=== PATIENT | male | born 1970 | race African-American/Black ===

== ENCOUNTER 2022-01-19 23:01 | Emergency (ER) | payer OTHER ==
[~2022-01-19] VITALS: Ht 177.8 cm; Wt 83.9 kg
[2022-01-19] MEDS ORDERED: MAG-AL HYDROX/SIMETH 30 ML UDC PO ONE (23:45)
[2022-01-19] MEDS ORDERED: ONDANSETRON 4 MG ODT TAB PO ONE (23:45)
[2022-01-19] MEDS ORDERED: DICYCLOMINE HCL 10 MG/5 ML SOLUTION PO ONE (23:45)
[2022-01-20 00:35] LABS: HEMOGLOBIN 13.7 g/dL (14.0-18.0); RED CELL DISTRIBUTION WIDTH 14.9 % (9.0-15.0)
[2022-01-20 00:40] LABS: BASOPHILS % (AUTO) 0.7 % (0.0-2.0); EOSINOPHILS % (AUTO) 0.7 % (0.0-4.0); HEMATOCRIT 40.5 % (36-54); LYMPHOCYTES # (AUTO) 1.9 K/uL (1.0-5.5); LYMPHOCYTES % (AUTO) 28.7 % (20.5-51.5); MEAN CORPUSCULAR HEMOGLOBIN 32 pg (27-31); MEAN CORPUSCULAR HGB CONC 34 % (32-36); MEAN CORPUSCULAR VOLUME 96 fL (79.0-98.0); MONOCYTES # (AUTO) 0.7 K/uL (0.0-1.0); MONOCYTES % (AUTO) 10.1 % (1.7-9.3); NEUTROPHILS # (AUTO) 3.9 K/uL (1.8-7.7); NEUTROPHILS % (AUTO) 59.8 % (40.0-70.0); PLATELET COUNT (AUTO) 199 K/uL (130-430); RED BLOOD CELL COUNT(AUTO) 4.24 MIL/uL (4.2-6.2); WHITE BLOOD COUNT (AUTO) 6.5 K/uL (4.8-10.8)
[2022-01-20 01:40] LABS: CALCIUM 9.3 mg/dL (8.4-11.0)
[2022-01-20 01:41] LABS: CREATININE 1.3 mg/dL (0.55-1.30); TOTAL BILIRUBIN 1.3 mg/dL (0.0-1.0)
[2022-01-20 01:42] LABS: ALBUMIN 3.8 g/dL (3.4-4.8)
[2022-01-20] MEDS ORDERED: ONDA-8 TL (01:50)
[2022-01-20 02:05] VITALS: BP_SYST 142
[2022-01-20 02:25] VITALS: BP_SYST 137
[2022-01-21] MEDS ORDERED: ALBMDI INH (21:14)
[2022-01-21] MEDS ORDERED: INHA1EAC52 MC (21:14)
[2022-01-21] MEDS ORDERED: ROBAC PO (21:14)
[2022-01-21] MEDS ORDERED: DOXY100T2 PO (21:14)
== END 2022-01-20 02:15 ==
LOC: SED 23:01
DX: R10.13 Epigastric pain (principal); R19.7 Diarrhea, unspecified; R11.10 Vomiting, unspecified; Z79.899 Other long term (current) drug therapy
CPT/HCPCS: 99284; 80053; 83690; 85025; 36415; Q0162

== ENCOUNTER 2022-01-21 18:28 | Emergency (ER) | payer OTHER ==
[~2022-01-21] VITALS: Ht 177.8 cm; Wt 81.6 kg
[~2022-01-21 18:28] MED LIST: ONDA-8 TL
[2022-01-21 18:54] VITALS: BP_SYST 132
--- NOTE | 2022-01-21 19:47 | NUR ---
ER Dr.Dela Alcantara examining patient in waiting room
[2022-01-21] MEDS ORDERED: ALBUTEROL SULFATE 0.083% 2.5 MG/3 ML VIAL.NEB INH ONE (20:00)
[2022-01-21 20:28] LABS: BASOPHILS % (AUTO) 0.9 % (0.0-2.0); EOSINOPHILS # (AUTO) 0.1 K/uL (0.0-0.4); EOSINOPHILS % (AUTO) 2.6 % (0.0-4.0); HEMATOCRIT 39.4 % (36-54); HEMOGLOBIN 13.2 g/dL (14.0-18.0); LYMPHOCYTES # (AUTO) 1.7 K/uL (1.0-5.5); LYMPHOCYTES % (AUTO) 32.9 % (20.5-51.5); MEAN CORPUSCULAR HEMOGLOBIN 33 pg (27-31); MEAN CORPUSCULAR HGB CONC 34 % (32-36); MEAN CORPUSCULAR VOLUME 97 fL (79.0-98.0); MONOCYTES # (AUTO) 0.5 K/uL (0.0-1.0); MONOCYTES % (AUTO) 8.8 % (1.7-9.3); NEUTROPHILS # (AUTO) 2.9 K/uL (1.8-7.7); NEUTROPHILS % (AUTO) 54.8 % (40.0-70.0); PLATELET COUNT (AUTO) 182 K/uL (130-430); RED BLOOD CELL COUNT(AUTO) 4.08 MIL/uL (4.2-6.2); RED CELL DISTRIBUTION WIDTH 14.8 % (9.0-15.0); WHITE BLOOD COUNT (AUTO) 5.2 K/uL (4.8-10.8)
[2022-01-21 21:04] LABS: ANION GAP 9 (5-15); CALCIUM 8.7 mg/dL (8.4-11.0); CHLORIDE 107 mmol/L (98-107); CREATININE 1.37 mg/dL (0.55-1.30); GLUCOSE 93 mg/dL (70-99); UREA NITROGEN, BLOOD 24 mg/dL (8-21)
[2022-01-21 21:12] LABS: ALANINE AMINOTRANSFERASE 32 U/L (12-78); ALBUMIN 3.6 g/dL (3.4-4.8); ASPARTATE AMINOTRANSFERASE 35 U/L (10-37); TOTAL BILIRUBIN 0.8 mg/dL (0.0-1.0)
[2022-01-21] MEDS ORDERED: DOXY100T2 PO (21:14)
[2022-01-21] MEDS ORDERED: ROBAC PO (21:14)
[2022-01-21] MEDS ORDERED: INHA1EAC52 MC (21:14)
[2022-01-21] MEDS ORDERED: ALBMDI INH (21:14)
[2022-01-21 21:20] LABS: GFR AFRICAN AMERICAN 71 mL/min (>90)
--- NOTE | 2022-01-21 21:45 | NUR ---
Patient came in to the ED for evaluation of constant shortness of breath associated with non radiating chest pain and dyspnea on exertion. Patient reports symptoms have progressively gotten worse for 1 week. Patient denies any alleviating or exacerbating factors. Patient denies any fevers, chills, nausea, vomiting,palpitations, abdominal pain, back pain, cough, runny nose, night sweats, or other complaints. Patient breathing easy, respirations even unlabored. Patient ambulatory with steady gait.
[2022-01-21 21:48] VITALS: BP_SYST 135
--- NOTE | 2022-01-21 21:48 | NUR ---
Patient given written and verbal discharge instructions and verbalizes understanding. ER MD discussed with patient the results and treatment provided. Patient in stable condition.ID arm band removed. Rx of ALBUTEROL INHALER, DOXYCYCLINE, ROBITUSSIN sent to pharmacy of choice by ER MD. Patient educated on pain management and to follow up with PMD. Pain Scale 0/10. Opportunity for questions provided and answered.
== END 2022-01-21 21:48 | disposition home or self-care (01) ==
LOC: SED 18:28
DX: J20.8 Acute bronchitis due to other specified organisms (principal); R05.9 Cough, unspecified; R06.02 Shortness of breath; R07.9 Chest pain, unspecified; Z79.899 Other long term (current) drug therapy
CPT/HCPCS: 80053; 85025; 84484; 36415; 93005; 71045; 99285; J7613